=== PATIENT | female | born 1980 | race Two or more races ===

== ENCOUNTER → 2020-05-23 08:00 | Outpatient (CLI) | payer OTHER ==
[~2020-05-23 08:00] MED LIST: HYZAAR 100-251 EACH PO
== END | disposition home or self-care (01) ==
LOC: ADM 07:45 → LAB 08:00 → ADM 05-26 07:45 → CIR.AMB 05-26 07:45 → EDSTATUS 05-26 07:45 → CIR.AMB 05-26 14:45
PROVIDERS: ATTEND Obstetrics & Gynecology
DX: N80.3 Endometriosis of pelvic peritoneum (principal); Z64.1 Problems related to multiparity; N92.5 Other specified irregular menstruation; J45.41 Moderate persistent asthma with (acute) exacerbation; I10 Essential (primary) hypertension; Z01.810 Encounter for preprocedural cardiovascular examination; Z01.812 Encounter for preprocedural laboratory examination; Z01.811 Encounter for preprocedural respiratory examination

== ENCOUNTER 2020-08-11 05:45 | Day surgery (SDC) | payer OTHER ==
[2020-08-11] MEDS ORDERED: Tylenol #3 PO (08:48)
== END 2020-08-11 12:40 | disposition home or self-care (01) ==
LOC: CIR.AMB 05:45
PROVIDERS: ATTEND Obstetrics & Gynecology
DX: Z30.2 Encounter for sterilization (principal); Z20.828 Contact with and (suspected) exposure to other viral communicable diseases